=== PATIENT | female | born 2000 | race Caucasian/White ===

== ENCOUNTER 2019-06-19 13:50 | Observation (INO) | payer OTHER ==
[~2019-06-19] VITALS: Ht 150 cm; Wt 67.0 kg
[2019-06-19 14:28] VITALS: BP 102/56
[2019-06-19] MEDS ORDERED: PREN-217 PO (14:55)
[2019-06-19] MEDS ORDERED: SODIUM CHLORIDE 0.9% 1,000 ML IV ONE (16:49)
[2019-06-19] MEDS ORDERED: SOD FERRIC GLUC COMPLX/SUCROSE 125 MG in SODIUM CHLORIDE 0.9% 100 ML IV ONE (17:00)
== END 2019-06-19 18:20 | disposition home or self-care (01) ==
LOC: 4S 13:50
PROVIDERS: ADMIT Obstetrics & Gynecology; ATTEND Obstetrics & Gynecology
DX: O36.8330 Maternal care for abnormalities of the fetal heart rate or rhythm, third trimester, not applicable or unspecified (principal); Z3A.39 39 weeks gestation of pregnancy
CPT/HCPCS: 76805; 81002; 96365; G0378; J2916; J7030; J7050

== ENCOUNTER 2019-06-23 17:15 | Inpatient (IN) | payer OTHER ==
[~2019-06-23] VITALS: Ht 149 cm; Wt 67.8 kg
[~2019-06-23 17:15] MED LIST: PREN-217 PO
[2019-06-23 17:54] VITALS: BP 109/64
[2019-06-23] MEDS ORDERED: RINGERS SOLUTION,LACTATED 1,000 ML IV SCH (20:08)
[2019-06-23] MEDS ORDERED: OXYTOCIN 30 UNITS/LACT RINGERS 500 ML IV PRN (20:08)
[2019-06-23] MEDS ORDERED: RINGERS SOLUTION,LACTATED 1,000 ML IV PRN (20:08)
[2019-06-23] MEDS ORDERED: CITRIC ACID/SODIUM CITRATE 30 ML SOLUTION UDCUP PO PRN (20:15)
[2019-06-23] MEDS ORDERED: METOCLOPRAMIDE HCL 5 MG/ML 2 ML VIAL IVP PRN (20:15)
[2019-06-23] MEDS ORDERED: ROPIVACAINE HCL/PF 0.2% 100 ML ED ONE (21:08)
[2019-06-23] MEDS ORDERED: LIDOCAINE/PF 2% 5 ML VIAL ONE (21:08)
[2019-06-23] MEDS ORDERED: LIDOCAINE/PF 1% 30 ML VIAL INJ PRN (21:15)
[2019-06-23] MEDS ORDERED: FentaNYL CITRATE-PF 100 MCG/2 ML VIAL IVP PRN (21:15)
[2019-06-23 21:23] LABS: LYMPHOCYTES # (AUTO) 1.5 K/uL (1.0-4.8)
[2019-06-23] MEDS: RINGERS SOLUTION,LACTATED 1,000 ML IV SCH ×2 (21:28→22:02)
[2019-06-23] MEDS ORDERED: ROPIVACAINE HCL/PF 0.2% 100 ML ED PRN (21:30)
[2019-06-23] MEDS ORDERED: DiphenhydrAMINE HCL 50 MG/ML VIAL IVP PRN (21:30)
[2019-06-23] MEDS ORDERED: NALBUPHINE HCL 10 MG/ML VIAL IVP PRN (21:30)
[2019-06-23] MEDS ORDERED: ONDANSETRON HCL 4 MG/2 ML VIAL IVP PRN (21:30)
[2019-06-23 21:36] LABS: BASOPHILS % (AUTO) 0.4 % (0.0-2.0); EOSINOPHILS % (AUTO) 0.9 % (1.0-6.0); HEMATOCRIT 24.3 % (36-46); HEMOGLOBIN 7.5 g/dL (12.0-16.0); LYMPHOCYTES % (AUTO) 18.6 % (22.0-44.0); MEAN CORPUSCULAR HEMOGLOBIN 23.2 pg (26.0-34.0); MEAN CORPUSCULAR HGB CONC 30.8 G/dL (31.0-37.0); MEAN CORPUSCULAR VOLUME 75 fL (80-100); MONOCYTES # (AUTO) 0.5 K/uL (0.1-1.0); MONOCYTES % (AUTO) 6.8 % (2.0-9.0); NEUTROPHILS # (AUTO) 5.9 K/uL (1.8-7.7); NEUTROPHILS % (AUTO) 73.3 % (40.0-70.0); PLATELET COUNT (AUTO)-OB 243 K/uL (150-450); RED BLOOD CELL COUNT(AUTO) 3.23 MIL/uL (4.00-5.20); RED CELL DISTRIBUTION WIDTH 23.9 % (11.5-14.5)
[2019-06-23] MEDS ORDERED: INFLUENZA VIRUS VACCINE QVS 2019-20 (3YR+)/PF 60 MCG/0.5 ML SYRINGE IM ONE (22:00)
[2019-06-23] MEDS ORDERED: TERBUTALINE SULFATE 1 MG/ML VIAL SQ STA (23:48)
[2019-06-24] MEDS: RINGERS SOLUTION,LACTATED 1,000 ML IV SCH (04:06)
[2019-06-24] MEDS ORDERED: OXYGEN THERAPY IH SCH (08:00)
[2019-06-24] MEDS ORDERED: OXYTOCIN 10 UNITS/ML VIAL IM ONE (11:54)
[2019-06-24] MEDS ORDERED: OXYTOCIN 20 UNITS/LACT RINGERS 1,000 ML IV SCH (12:54)
[2019-06-24] MEDS ORDERED: SENNA/DOCUSATE SODIUM 8.6-50 MG TABLET PO PRN (13:00)
[2019-06-24] MEDS ORDERED: ACETAMINOPHEN/CODEINE 300-30 MG TABLET PO PRN (13:00)
[2019-06-24] MEDS ORDERED: LANOLIN 7 GM OINTMENT TP PRN (13:00)
[2019-06-24] MEDS ORDERED: BENZOCAINE 20%/MENTHOL 56 GM SPRAY CANISTER TP PRN (13:00)
[2019-06-24] MEDS ORDERED: MEASLES/MUMPS/RUBELLA VACCINE, LIVE 0.5 ML/VIAL SQ ONE (13:00)
[2019-06-24] MEDS ORDERED: GLYCERIN/WITCH HAZEL LEAF 40 PADS JAR TP PRN (13:00)
[2019-06-24] MEDS: IBUPROFEN 600 MG TABLET PO PRN (13:06)
[2019-06-24] MEDS: MAGNESIUM HYDROXIDE SUSPENSION 30 ML UDCUP PO PRN (20:33)
[2019-06-25 05:42] LABS: BASOPHILS % (AUTO) 0.2 % (0.0-2.0); EOSINOPHILS % (AUTO) 0.4 % (1.0-6.0); LYMPHOCYTES # (AUTO) 1.5 K/uL (1.0-4.8); LYMPHOCYTES % (AUTO) 12.4 % (22.0-44.0); MEAN CORPUSCULAR HGB CONC 30.5 G/dL (31.0-37.0); MEAN CORPUSCULAR VOLUME 75 fL (80-100); MONOCYTES # (AUTO) 0.7 K/uL (0.1-1.0); MONOCYTES % (AUTO) 5.4 % (2.0-9.0); NEUTROPHILS # (AUTO) 9.9 K/uL (1.8-7.7); NEUTROPHILS % (AUTO) 81.6 % (40.0-70.0); PLATELET COUNT (AUTO)-OB 202 K/uL (150-450); RED BLOOD CELL COUNT(AUTO) 2.79 MIL/uL (4.00-5.20); RED CELL DISTRIBUTION WIDTH 23.2 % (11.5-14.5)
[2019-06-25 06:24] LABS: HEMOGLOBIN 6.4 g/dL (12.0-16.0)
[2019-06-25] MEDS ORDERED: IRON SUCROSE COMPLEX 100 MG in SODIUM CHLORIDE 0.9% 100 ML IV ONE (07:00)
[2019-06-25] MEDS ORDERED: SODIUM CHLORIDE 0.9% 100 ML ONE (07:28)
[2019-06-25] MEDS: IBUPROFEN 600 MG TABLET PO PRN (07:58)
[2019-06-25] MEDS: MAGNESIUM HYDROXIDE SUSPENSION 30 ML UDCUP PO PRN (07:58)
[2019-06-25] MEDS ORDERED: IBUP-2071 PO (10:25)
[2019-06-25] MEDS ORDERED: DOCU-275 PO (10:30)
[2019-06-25] MEDS ORDERED: FERR-89 PO (10:32)
[2019-06-25 11:45] LABS: BASOPHILS % (AUTO) 0.8 % (0.0-2.0); EOSINOPHILS % (AUTO) 0.3 % (1.0-6.0); HEMATOCRIT 25.4 % (36-46); HEMOGLOBIN 7.7 g/dL (12.0-16.0); LYMPHOCYTES # (AUTO) 1.6 K/uL (1.0-4.8); MEAN CORPUSCULAR HEMOGLOBIN 23.1 pg (26.0-34.0); MEAN CORPUSCULAR HGB CONC 30.3 G/dL (31.0-37.0); MEAN CORPUSCULAR VOLUME 76 fL (80-100); MONOCYTES # (AUTO) 0.5 K/uL (0.1-1.0); MONOCYTES % (AUTO) 4.3 % (2.0-9.0); NEUTROPHILS # (AUTO) 10.3 K/uL (1.8-7.7); NEUTROPHILS % (AUTO) 81.6 % (40.0-70.0); PLATELET COUNT (AUTO)-OB 253 K/uL (150-450); RED BLOOD CELL COUNT(AUTO) 3.33 MIL/uL (4.00-5.20)
== END 2019-06-25 12:50 | disposition home or self-care (01) | DRG 807 ==
LOC: OBSVTOIN 17:15 → 4S 17:15
PROVIDERS: ADMIT Obstetrics & Gynecology; ATTEND Obstetrics & Gynecology
PROC: 10E0XZZ Delivery of Products of Conception, External Approach (ICD-10-PCS; principal; 2019-06-24)
PROC: 0KQM0ZZ Repair Perineum Muscle, Open Approach (ICD-10-PCS; 2019-06-24)
PROC: 3E0R3BZ Introduction of Anesthetic Agent into Spinal Canal, Percutaneous Approach (ICD-10-PCS; 2019-06-24)
PROC: 00HU33Z Insertion of Infusion Device into Spinal Canal, Percutaneous Approach (ICD-10-PCS; 2019-06-24)
DX: O69.81X0 Labor and delivery complicated by cord around neck, without compression, not applicable or unspecified (principal); Z37.0 Single live birth; O70.1 Second degree perineal laceration during delivery; Z3A.40 40 weeks gestation of pregnancy
CPT/HCPCS: 86850; 86900; 86901; J1756; J2590; J2795; J3490; J7050; J7120